=== PATIENT | male | born 1970 | race Caucasian/White ===

== ENCOUNTER 2022-11-18 13:41 | Outpatient (CLI) | payer BC | END 2022-11-18 23:59 | disposition critical access hospital (66) | LOC: EMS 13:41 | DX: R25.2 Cramp and spasm (principal); G89.29 Other chronic pain | CPT/HCPCS: A0425; A0429 ==

== ENCOUNTER 2023-02-16 09:15 | Outpatient (CLI) | payer BC ==
[2023-02-16 12:26] LABS: CALCIUM 9.9 mg/dL (8.5-10.3); CREATININE 0.7 mg/dL (0.6-1.3); POTASSIUM 4.6 mmol/L (3.5-4.5); URIC ACID 5.8 mg/dL (4.4-7.6)
== END 2023-02-16 09:30 | disposition home or self-care (01) ==
LOC: LAB.N 09:15
PROVIDERS: ATTEND Family Medicine
DX: M79.672 Pain in left foot (principal)
CPT/HCPCS: 36415; 80048; 84550; 85651